=== PATIENT | female | born 1940 ===

== ENCOUNTER → 2017-10-10 11:51 | Outpatient (CLI) | payer OTHER ==
[~2017-10-10 11:51] MED LIST: AVALIDE 300-12.1 TA1 PO; PAXIL20 MG PO; [UNRECOGNIZED DRUG - OTHER]
== END | disposition home or self-care (01) ==
LOC: RAD 11:51
DX: M17.11 Unilateral primary osteoarthritis, right knee (principal); M25.561 Pain in right knee

== ENCOUNTER 2018-11-11 14:02 | Outpatient (CLI) | payer OTHER | END 2018-11-11 17:00 | disposition home or self-care (01) | LOC: SONOGRAMA 14:02 | DX: M25.512 Pain in left shoulder (principal) ==

== ENCOUNTER 2019-09-02 15:36 | Outpatient (CLI) | payer OTHER | END 2019-09-05 12:25 | disposition home or self-care (01) | LOC: RAD 15:36 | DX: M79.642 Pain in left hand (principal) ==

== ENCOUNTER 2020-05-31 12:41 | Outpatient (CLI) | payer OTHER | END 2020-05-31 16:56 | disposition home or self-care (01) | LOC: RAD 12:41 | PROVIDERS: ATTEND Physical Medicine & Rehabilitation | DX: M25.561 Pain in right knee (principal); M25.562 Pain in left knee ==